=== PATIENT | male | born 1990 | race Caucasian/White ===

== ENCOUNTER 2016-06-07 23:58 | Emergency (ER) | payer SELFPAY ==
--- NOTE | ~2016-06-07 | CR72 ---
[facility] A Service of [facility] RADIOLOGY TEXT RESULTS PATIENT: YOMI MAHAN LOCATION: [facility] : [birth year] UNIT #: [id number] AGE: [address]: Therese Castellanos MD SEX: M ORDER DR: [id number] [facility]. [place], [place] [address] [id number] E MR#: [id number] Acc #: [id number] NAME: YOMI MAHAN : 1990 SEX: M STUDY DATE/TIME: 06/08/2016 0:29 UNIT: [facility] ROOM: STUDY DESCRIPTION: CR Chest Single View Portable Attending Physician: Therese Castellanos M.D. Ordering Physician: Therese Castellanos M.D. Primary Care Physician: Primary Care Physician No MEDICAL IMAGING REPORT This report is preliminary unless electronic signature is present EXAM Frontal chest, 06/08/2016 INDICATIONS 26-year-old male with shortness of air, cough and congestion, headache symptoms a week. TECHNIQUE Frontal chest was performed and compared with 11/10/2013. FINDINGS Cardiac silhouette is within normal limits. Vascularity is unremarkable. There are diffusely increased interstitial markings in both lungs involving the upper, mid and lower lung zones. This represents a change from the prior study, and despite lower lung volumes is suspicious for diffuse interstitial infiltrates. There is no dense consolidation, effusion or pneumothorax. IMPRESSION 1. Despite lower lung volumes, there are diffuse interstitial opacities in both lungs suspicious for interstitial infiltrates. There is no effusion or dense consolidation. Follow up to clearing after appropriate therapy is recommended. STAT * RESULT Dictated by... Kamran Keller M.D. THIS IS AN ELECTRONICALLY VERIFIED REPORT Kamran Keller M.D. at 06/08/2016 3:49 AM JLY/hailee [facility] A Service of [facility] RADIOLOGY TEXT RESULTS PATIENT: YOMI MAHAN LOCATION: [facility] : [birth year] UNIT #: [id number] AGE: [address]: Therese Castellanos MD SEX: M ORDER DR: TD: 06/08/2016 01:57 JOB #: [id number] MEDICAL IMAGING REPORT Page 1 of 1 COPY
[~2016-06-07 23:58] MED LIST: IBUPROFEN600 MG PO; PEN-VEE K PO; ULTRAM PO
[2016-06-08 01:03] LABS: INFLUENZA A NEG (NEG); INFLUENZA B POS (NEG)
== END 2016-06-08 02:40 | disposition home or self-care (01) ==
LOC: CED 23:58
PROVIDERS: Emergency Medicine
DX: J11.00 Influenza due to unidentified influenza virus with unspecified type of pneumonia (principal)
CPT/HCPCS: 71010; 87651; 87804; 99283